=== PATIENT | male | born 1985 | race Caucasian/White ===

== ENCOUNTER 2021-11-13 20:40 | Emergency (ER) | payer BC ==
[~2021-11-13] VITALS: Ht 182.9 cm; Wt 78.0 kg
[2021-11-13 22:27] VITALS: BP 133/84
[2021-11-13] MEDS ORDERED: TDAP [DIPH/PERTUSSIS/TET] 0.5 ML VIAL IM ONE ×2 (22:54→23:30)
[2021-11-13] MEDS ORDERED: CEPH500C2 PO (23:03)
--- NOTE | 2021-11-13 23:13 | NUR ---
Patient discharged to home in stable condition. Written and verbal after care instructions given. Patient verbalizes understanding of instruction.
== END 2021-11-13 23:13 | disposition home or self-care (01) ==
LOC: ER 20:40
DX: S02.2XXA Fracture of nasal bones, initial encounter for closed fracture (principal); W19.XXXA Unspecified fall, initial encounter; Y93.89 Activity, other specified; Y92.89 Other specified places as the place of occurrence of the external cause; Y99.8 Other external cause status
CPT/HCPCS: 90715